=== PATIENT | male | born 1955 | race American Indian/Alaskan Native ===

== ENCOUNTER 2021-03-19 21:53 | Emergency (ER) | payer SELFPAY ==
[2021-03-19] MEDS ORDERED: SODIUM CHLORIDE 0.9% 1000 ML 1,000 ML IV ONE (23:05)
[2021-03-19] MEDS ORDERED: LORazepam 2 MG/ML VIAL IV PRN ×2 (23:07)
[2021-03-19] MEDS ORDERED: PANTOPRAZOLE 40 MG INJ IV ONE (23:07)
[2021-03-19] MEDS ORDERED: LACTATED RINGERS 1,000 ML IV ONE (23:07)
[2021-03-19] MEDS ORDERED: ONDANSETRON 4 MG/2 ML INJ IV ONE (23:10)
--- NOTE | 2021-03-19 23:10 | Emergency Department Report ---
ED General Adult HPI - General Chief complaint: Weakness Stated complaint: N/V PUI?: No Time Seen by Provider: 03/19/21 22:54 Source: patient, EMS ( EMS documentation not available at time of chart dictation ), RN notes reviewed Mode of arrival: Stretcher Limitations: Physical Limitation - History of Present Illness Initial comments: The patient is a 65-year-old gentleman. He is not known to myself previously. History obtained from EMS and from patient. As per verbal report from EMS, the patient was previously homeless, has not seen a doctor, in quite some time, and has an unknown cohort of medical problems. EMS reports that they were called for a complaint of weakness, and nausea, vomiting, and difficulty walking. EMS reports stable vital signs in the field. The patient himself complains of generalized weakness, muscle cramping, nontraumatic lower back pain which does not radiate anywhere, and generalized weakness in his legs. He feels like his generalized weakness in his legs has been present for "a long time." He is not quite sure what time it got worse. He knows that he lives with his sister, and states that he has assistance putting on his shoes, and clothing He denies headache, neck pain, chest pain. He has abdominal cramping. To me he denies vomiting and diarrhea. He denies saddle anesthesia. He denies bladder or bowel retention/incontinence. He occasionally consumes alcohol. He denies recreational drug use. He is not homicidal or suicidal. His generalized weakness is constant. It does not radiate anywhere. He does not have exacerbating relieving factors. -: Gradual, week(s) Location: back, left, right, upper extremity, lower extremity Quality: other Consistency: other Improves with: other Worsens with: other Associated Symptoms: weakness - Related Data Allergies Allergy/AdvReac Type Severity Reaction Status Date / Time No Known Allergies Allergy Verified 03/19/21 23:04 ED Review of Systems ROS: Stated complaint: N/V Other details as noted in HPI Constitutional: weakness, other (Denies loss of taste and smell). denies: fever Eyes: denies: eye discharge Respiratory: denies: cough Cardiovascular: denies: chest pain Gastrointestinal: other (Abdominal cramp) Musculoskeletal: back pain, arthralgia, myalgia Neurological: weakness Psychiatric: denies: homicidal thoughts, suicidal thoughts ED Past Medical Hx - Social History Smoking Status: Never Smoker Substance Use Type: Alcohol ED Physical Exam - General Limitations: Physical Limitation General appearance: alert, anxious, obese - Head Head exam: Present: atraumatic, other (There is a right frontal circumscribed lesion noted) - Eye Eye exam: Present: normal appearance, EOMI. Absent: nystagmus - ENT ENT exam: Present: mucous membranes dry, normal external ear exam - Neck Neck exam: Present: normal inspection, full ROM. Absent: tenderness, meningismus - Respiratory Respiratory exam: Present: normal lung sounds bilaterally, other (There is an anterior chest wall circular lesion noted). Absent: respiratory distress, wheezes, rales, rhonchi, stridor, decreased breath sounds - Cardiovascular Cardiovascular Exam: Present: regular rate, normal rhythm, normal heart sounds. Absent: bradycardia, tachycardia, irregular rhythm, systolic murmur, diastolic murmur, rubs, gallop - GI/Abdominal GI/Abdominal exam: Present: soft, distended. Absent: guarding, rebound, rigid, pulsatile mass - Rectal Rectal exam: Present: normal inspection, normal rectal tone, heme (+) stool, black stool, other (Chaperoned by Loulou Lockett). Absent: bloody stool, fecal impaction - Extremities Exam Extremities exam: Present: normal inspection (The patient is able to wiggle both feet, and move both legs laterally. He also briskly withdraws both legs to painful stimuli/pins), full ROM (Full range of motion in the bilateral upper extremities.), other (2+ pulses noted in the bilateral upper and lower extremities. There is no palpable cord. negative Homans sign. Muscular compartments are soft. The pelvis is stable.). Absent: pedal edema, calf tenderness - Back Exam Back exam: Present: normal inspection, paraspinal tenderness. Absent: tenderness, CVA tenderness (R), CVA tenderness (L) - Neurological Exam Neurological exam: Present: alert, oriented X3, motor sensory deficit (Patient has 4 out of 5 strength in the bilateral lower extremities. He has 5 out of 5 strength in the upper extremities.), other (There is no facial droop. The tongue is midline. Extraocular movements are intact bilaterally. Sensation is intact to light touch and pinch in the bilateral upper and lower extremities. Proprioception is intact in the lower extremities.) - Psychiatric Psychiatric exam: Present: anxious - Skin Skin exam: Present: warm, dry, intact, normal color. Absent: rash ED Course Vital Signs 03/19/21 03/19/21 03/19/21 23:00 23:16 23:30 Temperature 98.3 F Pulse Rate 91 H 95 H 81 Respiratory 22 13 13 Rate Blood Pressure 138/93 138/93 138/93 Blood Pressure 138/93 [Left] O2 Sat by Pulse 100 98 100 Oximetry 03/19/21 03/20/21 03/20/21 23:46 00:00 00:16 Temperature Pulse Rate 84 84 91 H Respiratory 16 19 20 Rate Blood Pressure 138/90 138/90 139/87 Blood Pressure [Left] O2 Sat by Pulse 98 99 92 Oximetry 03/20/21 03/20/21 03/20/21 00:35 00:36 02:10 Temperature Pulse Rate 90 94 H 93 H Respiratory 16 18 16 Rate Blood Pressure 139/87 Blood Pressure 129/77 137/81 [Left] O2 Sat by Pulse 97 93 Oximetry 03/20/21 02:39 Temperature Pulse Rate 101 H Respiratory 25 H Rate Blood Pressure 129/77 Blood Pressure [Left] O2 Sat by Pulse Oximetry - Reevaluation(s) Reevaluation #1: 03/20/21 00:07 Differential diagnosis, including but not limited to: Myopathy, deconditioning, psoas abscess, electrolyte derangement, thyroid derangement, alcohol dependence AAA DJD, upper GI bleed Assessment and plan: 65-year-old gentleman with a complaint of generalized weakness, back pain, history of nausea and vomiting. The patient is a poor historian. He is experiencing myoclonic jerks. He has dark stool that is guaiac positive. He has some tongue fasciculations. Suspect there may be a component of alcohol dependence/withdrawal. Place patient on court recording monitor. Obtain CT scan of the brain, abdomen pelvis. Obtain appropriate laboratory studies. Initiate alcohol withdrawal protocol. Start IV fluids and Protonix. Reassess after initial data points. The patient has intact sensation to pinch, light touch and proprioception, with good rectal tone, without saddle anesthesia. He also does not have bladder or bowel retention or incontinence. He also reports that his leg weakness has been present for a long time. 03/20/21 00:59 Patient is awake, but more confused. Thought processes not quite as lucid at this time. He is also found to be mildly hyponatremic, with lactic acidosis. I suspect a component of alcohol withdrawal. ciwa score 15 Nursing team to follow protocol. CT scan brain, abdomen pelvis ordered. Patie nt will be admitted once initial diagnostics have resulted. Suspect that lactic acidosis is a type II lactic acidosis, likely secondary to dehydration, and alcohol dependence and withdrawal. Do not suspect invasive bacterial infection at this time. 03/20/21 01:01 03/20/21 02:23 Patient has become progressively more agitated. He is pulling off leads, and his IV. His alcohol withdrawal score is elevating. He does not respond to command or redirection. Medicated as per protocol. 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 MRI of the brain with contrast would be suggested for further evaluation and to differentiate between primary neoplasm versus metastasis. No acute intracranial hemorrhage is identified. Decadron ordered. Have requested neurosurgical consultation. Am awaiting callback at this time. 03/20/21 04:13 Reevaluation #2: 03/20/21 03:55 Our neurosurgeon recommended transfer. Please reference my consultative note. Reevaluation #3: 03/20/21 04:12 Have discussed patient's history, physical, imaging, pertinent laboratory studies physical exam findings with neurology critical care, Dr. Crocker, and neurosurgeon, Dr. Granda at [facility] The patient is accepted to [facility] as a transfer. - Consultations Consultation #1: 03/20/21 02:33 Contacted our neurosurgeon on-call, Dr. Meier. Have discussed the patient's history, physical, laboratory studies, imaging studies, and overall clinical impression. He advises at this facility is not capable of performing open craniotomy interventions, and he recommends transfer to tertiary care center that can perform higher level of care. We have now reached out to the [facility] transfer center to arrange transfer for definitive management. ED Medical Decision Making - Lab Data Result diagrams: 03/19/21 23:11 03/19/21 23:11 Vital Signs 03/19/21 23:00 Temperature 98.3 F Pulse Rate 91 H Respiratory 22 Rate Blood Pressure 138/93 Blood Pressure 138/93 [Left] O2 Sat by Pulse 99 Oximetry Lab Results 03/19/21 03/19/21 03/19/21 Range/Units 23:11 23:11 23:11 WBC 10.4 (4.5-11.0) K/mm3 RBC 4.33 (3.65-5.03) M/mm3 Hgb 15.3 H (11.8-15.2) gm/dl Hct 44.6 (35.5-45.6) % MCV 103 H (84-94) fl MCH 35 H (28-32) pg MCHC 34 (32-34) % RDW 17.8 H (13.2-15.2) % Plt Count 292 (140-440) K/mm3 Lymph % (Auto) 13.8 (13.4-35.0) % [place] % (Auto) 14.4 H (0.0-7.3) % Eos % (Auto) 0.1 (0.0-4.3) % Baso % (Auto) 0.4 (0.0-1.8) % Lymph # (Auto) 1.4 (1.2-5.4) K/mm3 [place] # (Auto) 1.5 H (0.0-0.8) K/mm3 Eos # (Auto) 0.0 (0.0-0.4) K/mm3 Baso # (Auto) 0.0 (0.0-0.1) K/mm3 Seg Neutrophils % 71.3 H (40.0-70.0) % Seg Neutrophils # 7.4 (1.8-7.7) K/mm3 PT 13.6 (12.2-14.9) Sec. INR 0.98 (0.87-1.13) Troponin T (0.00-0.029) ng/mL Albumin/Globulin Ratio 0.8 % 03/19/21 Range/Units 23:11 WBC (4.5-11.0) K/mm3 RBC (3.65-5.03) M/mm3 Hgb (11.8-15.2) gm/dl Hct (35.5-45.6) % MCV (84-94) fl MCH (28-32) pg MCHC (32-34) % RDW (13.2-15.2) % Plt Count (140-440) K/mm3 Lymph % (Auto) (13.4-35.0) % [place] % (Auto) (0.0-7.3) % Eos % (Auto) (0.0-4.3) % Baso % (Auto) (0.0-1.8) % Lymph # (Auto) (1.2-5.4) K/mm3 [place] # (Auto) (0.0-0.8) K/mm3 Eos # (Auto) (0.0-0.4) K/mm3 Baso # (Auto) (0.0-0.1) K/mm3 Seg Neutrophils % (40.0-70.0) % Seg Neutrophils # (1.8-7.7) K/mm3 PT (12.2-14.9) Sec. INR (0.87-1.13) Troponin T < 0.010 (0.00-0.029) ng/mL Albumin/Globulin Ratio % Lab Results 03/19/21 03/19/21 03/19/21 Range/Units 23:11 23:11 23:11 WBC 10.4 (4.5-11.0) K/mm3 RBC 4.33 (3.65-5.03) M/mm3 Hgb 15.3 H (11.8-15.2) gm/dl Hct 44.6 (35.5-45.6) % MCV 103 H (84-94) fl MCH 35 H (28-32) pg MCHC 34 (32-34) % RDW 17.8 H (13.2-15.2) % Plt Count 292 (140-440) K/mm3 Lymph % (Auto) 13.8 (13.4-35.0) % [place] % (Auto) 14.4 H (0.0-7.3) % Eos % (Auto) 0.1 (0.0-4.3) % Baso % (Auto) 0.4 (0.0-1.8) % Lymph # (Auto) 1.4 (1.2-5.4) K/mm3 [place] # (Auto) 1.5 H (0.0-0.8) K/mm3 Eos # (Auto) 0.0 (0.0-0.4) K/mm3 Baso # (Auto) 0.0 (0.0-0.1) K/mm3 Seg Neutrophils % 71.3 H (40.0-70.0) % Seg Neutrophils # 7.4 (1.8-7.7) K/mm3 PT 13.6 (12.2-14.9) Sec. INR 0.98 (0.87-1.13) Sodium 130 L (137-145) mmol/L Potassium 3.8 (3.6-5.0) mmol/L Chloride 91.1 L (98-107) mmol/L Carbon Dioxide 24 (22-30) mmol/L Anion Gap 19 mmol/L BUN 10 (9-20) mg/dL Creatinine 0.6 L (0.8-1.3) mg/dL Estimated GFR > 60 ml/min BUN/Creatinine Ratio 17 % Glucose 107 H (75-100) mg/dL Lactic Acid (0.7-2.0) mmol/L Calcium 10.0 (8.4-10.2) mg/dL Phosphorus (2.5-4.5) mg/dL Magnesium (1.7-2.3) mg/dL Total Bilirubin 1.10 (0.1-1.2) mg/dL AST 42 H (5-40) units/L ALT 14 (7-56) units/L Alkaline Phosphatase 198 H (35-129) units/L Ammonia (25-60) umol/L Total Creatine Kinase (55-170) units/L Troponin T (0.00-0.029) ng/mL Total Protein 8.3 H (6.3-8.2) g/dL Albumin 3.8 L (3.9-5) g/dL Albumin/Globulin Ratio 0.8 % TSH (0.270-4.200) mlU/mL Salicylates (2.8-20.0) mg/dL Acetaminophen (10.0-30.0) ug/mL Plasma/Serum Alcohol (0-0.07) % 03/19/21 03/19/21 03/19/21 Range/Units 23:11 23:11 23:11 WBC (4.5-11.0) K/mm3 RBC (3.65-5.03) M/mm3 Hgb (11.8-15.2) gm/dl Hct (35.5-45.6) % MCV (84-94) fl MCH (28-32) pg MCHC (32-34) % RDW (13.2-15.2) % Plt Count (140-440) K/mm3 Lymph % (Auto) (13.4-35.0) % [place] % (Auto) (0.0-7.3) % Eos % (Auto) (0.0-4.3) % Baso % (Auto) (0.0-1.8) % Lymph # (Auto) (1.2-5.4) K/mm3 [place] # (Auto) (0.0-0.8) K/mm3 Eos # (Auto) (0.0-0.4) K/mm3 Baso # (Auto) (0.0-0.1) K/mm3 Seg Neutrophils % (40.0-70.0) % Seg Neutrophils # (1.8-7.7) K/mm3 PT (12.2-14.9) Sec. INR (0.87-1.13) Sodium (137-145) mmol/L Potassium (3.6-5.0) mmol/L Chloride (98-107) mmol/L Carbon Dioxide (22-30) mmol/L Anion Gap mmol/L BUN (9-20) mg/dL Creatinine (0.8-1.3) mg/dL Estimated GFR ml/min BUN/Creatinine Ratio % Glucose (75-100) mg/dL Lactic Acid 3.50 H* (0.7-2.0) mmol/L Calcium (8.4-10.2) mg/dL Phosphorus 2.70 (2.5-4.5) mg/dL Magnesium 1.80 (1.7-2.3) mg/dL Total Bilirubin (0.1-1.2) mg/dL AST (5-40) units/L ALT (7-56) units/L Alkaline Phosphatase (35-129) units/L Ammonia (25-60) umol/L Total Creatine Kinase 120 (55-170) units/L Troponin T < 0.010 (0.00-0.029) ng/mL Total Protein (6.3-8.2) g/dL Albumin (3.9-5) g/dL Albumin/Globulin Ratio % TSH 1.990 (0.270-4.200) mlU/mL Salicylates (2.8-20.0) mg/dL Acetaminophen (10.0-30.0) ug/mL Plasma/Serum Alcohol (0-0.07) % 03/19/21 03/19/21 03/19/21 Range/Units 23:11 23:11 23:11 WBC (4.5-11.0) K/mm3 RBC (3.65-5.03) M/mm3 Hgb (11.8-15.2) gm/dl Hct (35.5-45.6) % MCV (84-94) fl MCH (28-32) pg MCHC (32-34) % RDW (13.2-15.2) % Plt Count (140-440) K/mm3 Lymph % (Auto) (13.4-35.0) % [place] % (Auto) (0.0-7.3) % Eos % (Auto) (0.0-4.3) % Baso % (Auto) (0.0-1.8) % Lymph # (Auto) (1.2-5.4) K/mm3 [place] # (Auto) (0.0-0.8) K/mm3 Eos # (Auto) (0.0-0.4) K/mm3 Baso # (Auto) (0.0-0.1) K/mm3 Seg Neutrophils % (40.0-70.0) % Seg Neutrophils # (1.8-7.7) K/mm3 PT (12.2-14.9) Sec. INR (0.87-1.13) Sodium (137-145) mmol/L Potassium (3.6-5.0) mmol/L Chloride (98-107) mmol/L Carbon Dioxide (22-30) mmol/L Anion Gap mmol/L BUN (9-20) mg/dL Creatinine (0.8-1.3) mg/dL Estimated GFR ml/min BUN/Creatinine Ratio % Glucose (75-100) mg/dL Lactic Acid (0.7-2.0) mmol/L Calcium (8.4-10.2) mg/dL Phosphorus (2.5-4.5) mg/dL Magnesium (1.7-2.3) mg/dL Total Bilirubin (0.1-1.2) mg/dL AST (5-40) units/L ALT (7-56) units/L Alkaline Phosphatase (35-129) units/L Ammonia 20.0 L (25-60) umol/L Total Creatine Kinase (55-170) units/L Troponin T (0.00-0.029) ng/mL Total Protein (6.3-8.2) g/dL Albumin (3.9-5) g/dL Albumin/Globulin Ratio % TSH (0.270-4.200) mlU/mL Salicylates 0.4 L (2.8-20.0) mg/dL Acetaminophen 5.0 L (10.0-30.0) ug/mL Plasma/Serum Alcohol (0-0.07) % 03/19/21 Range/Units 23:11 WBC (4.5-11.0) K/mm3 RBC (3.65-5.03) M/mm3 Hgb (11.8-15.2) gm/dl Hct (35.5-45.6) % MCV (84-94) fl MCH (28-32) pg MCHC (32-34) % RDW (13.2-15.2) % Plt Count (140-440) K/mm3 Lymph % (Auto) (13.4-35.0) % [place] % (Auto) (0.0-7.3) % Eos % (Auto) (0.0-4.3) % Baso % (Auto) (0.0-1.8) % Lymph # (Auto) (1.2-5.4) K/mm3 [place] # (Auto) (0.0-0.8) K/mm3 Eos # (Auto) (0.0-0.4) K/mm3 Baso # (Auto) (0.0-0.1) K/mm3 Seg Neutrophils % (40.0-70.0) % Seg Neutrophils # (1.8-7.7) K/mm3 PT (12.2-14.9) Sec. INR (0.87-1.13) Sodium (137-145) mmol/L Potassium (3.6-5.0) mmol/L Chloride (98-107) mmol/L Carbon Dioxide (22-30) mmol/L Anion Gap mmol/L BUN (9-20) mg/dL Creatinine (0.8-1.3) mg/dL Estimated GFR ml/min BUN/Creatinine Ratio % Glucose (75-100) mg/dL Lactic Acid (0.7-2.0) mmol/L Calcium (8.4-10.2) mg/dL Phosphorus (2.5-4.5) mg/dL Magnesium (1.7-2.3) mg/dL Total Bilirubin (0.1-1.2) mg/dL AST (5-40) units/L ALT (7-56) units/L Alkaline Phosphatase (35-129) units/L Ammonia (25-60) umol/L Total Creatine Kinase (55-170) units/L Troponin T (0.00-0.029) ng/mL Total Protein (6.3-8.2) g/dL Albumin (3.9-5) g/dL Albumin/Globulin Ratio % TSH (0.270-4.200) mlU/mL Salicylates (2.8-20.0) mg/dL Acetaminophen (10.0-30.0) ug/mL Plasma/Serum Alcohol 0.01 (0-0.07) % Vital Signs 03/19/21 03/20/21 23:00 00:35 Temperature 98.3 F Pulse Rate 91 H 90 Respiratory 22 16 Rate Blood Pressure 138/93 Blood Pressure 138/93 129/77 [Left] O2 Sat by Pulse 99 97 Oximetry - EKG Data -: EKG Interpreted by Mt - EKG Data 03/20/21 00:01 Sinus rhythm, 90 bpm. There is a left axis deviation. There is a left anterior fascicular block. There is a right bundle block. There is left ventricular hypertrophy. This is an abnormal EKG. This is not a STEMI. There is no prior for comparison. - Radiology Data Radiology results: report reviewed, image reviewed [facility] [address] [place] [address] XRay Report Signed Patient: FREDDY GARCIA MR#: [id number] : 1955 Acct:[id number] Age/Sex: 65 / M ADM Date: 03/19/21 Loc: ED Attending Dr: Ordering Physician: CLARIBEL MCCULLOUGH MD Date of Service: 03/19/21 Procedure(s): XR chest 1V ap Accession Number(s): [id number] cc: CLARIBEL MCCULLOUGH MD Fluoro Time In Minutes: CHEST 1 VIEW INDICATION / CLINICAL INFORMATION: Weakness. FINDINGS: SUPPORT DEVICES: None. HEART / MEDIASTINUM: No significant abnormality. LUNGS / PLEURA: Prominent calcific density measuring about 6 cm in diameter projects along the right lateral chest wall. The remaining lungs are grossly clear. No large pleural effusion. Signer Name: Suhas Camargo MD Signed: 03/19/2021 11:37 PM Workstation Name: [id number] Transcribed By: BC Dictated By: Suhas Camargo MD Electronically Authenticated By: Suhas Camargo MD Signed Date/Time: 03/19/212336 DD/ 35 [facility] [address] [place] [address] Cat Scan Report Signed Patient: FREDDY GARCIA MR#: [id number] : 1955 Acct:[id number] Age/Sex: 65 / M ADM Date: 03/19/21 Loc: ED Attending Dr: Ordering Physician: CLARIBEL MCCULLOUGH MD Date of Service: 03/19/21 Procedure(s): CT head/brain wo con Accession Number(s): [id number] cc: CLARIBEL MCCULLOUGH MD CT head without contrast INDICATION : Headache TECHNIQUE: Axial imaging performed from the skull apex through the skull base without the use of contrast. All CT examinations performed at this facility utilize dose modulation, iterative reconstruction or weight-based dosing, when appropriate, to reduce radiation dose to as low as reasonably achievable. COMPARISON: None FINDINGS: There is a large, moderately appearing mass arising near the right frontal convexity of the skull measuring 4.6 x 3.5 cm. There is some intermixed calcification within the mass. This mass causes mass effect on the epidural space and the adjacent right frontal lobe. No acute intracranial hemorrhage is identified. The orbits are unremarkable. The paranasal sinuses are grossly clear. 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 MRI of the brain with contrast would be suggested for further evaluation and to differentiate between primary neoplasm versus metastasis. No acute intracranial hemorrhage is identified. Signer Name: Suhas Camargo MD Signed: 03/20/2021 2:13 AM Workstation Name: [id number] Transcribed By: BC Dictated By: Suhas Camargo MD Electronically Authenticated By: Suhas Camargo MD Signed Date/Time: 03/20/21212 DD/ 7 [facility] [address] [place] [address] Cat Scan Report Signed Patient: FREDDY GARCIA MR#: [id number] : 1955 Acct:[id number] Age/Sex: 65 / M ADM Date: 03/19/21 Loc: ED Attending Dr: Ordering Physician: CLARIBEL MCCULLOUGH MD Date of Service: 03/19/21 Procedure(s): CT abdomen pelvis w con Accession Number(s): [id number] cc: CLARIBEL MCCULLOUGH MD CT abdomen pelvis w con INDICATION / CLINICAL INFORMATION: Pt complains of we akness, N/V and lower back pain. TECHNIQUE: Routine CT abdomen pelvis with contrast All CT scans at this location are performed using CT dose reduction for ALARA by means of automated exposure control. This exam is severely limited secondary to respiratory motion artifact and patient arm position causing streak artifact. COMPARISON: None available. FINDINGS: Abdomen and pelvis: Limited exam as outlined above in techniques section. There are multiple nonspecific hypodensities scattered throughout the liver. The gallbladder wall appears thickened. There is mild intra and extra hepatic b iliary dilatation. The pancreas is borderline atrophic. The pancreatic head is poorly visualized from streak artifact. No hydronephrosis. The right kidney is grossly unremarkable. The adrenal glands are unremarkable. The left kidney contains a hypodensity within the upper pole that may represent a cyst No evidence of high-grade bowel obstruction. Urinary bladder is unremarkable. Abnormal thickening of the rectal wall, nonspecific. There is also abnormal thickening involving the distal thoracic esophagus. Multiple pathologic appearing retroperitoneal nodes identified along the periaortic region. Large right inguinal hernia, fat-containing Review of the bone windows demonstrates innumerable large lytic lesions involving the thoracic spine lumbar spine and pelvis. One of the largest lesions is located within the right sacrum and measures 4 cm in diameter and is causing direct impingement of the exiting nerves from the right S2 and S3 neural foramina. Similar-appearing lytic lesions are identified involving the T12 vertebral body causing severe impingement of the right exiting nerve root at this level. This lesion measures 4.3 cm in diameter. There is a large lytic abnormality involving the lateral aspect of L1 which measures 5 cm in diameter IMPRESSION: 1. Limited exam, as outlined above. 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 Many of these lesions are causing neural impingement. MRI of the thoracic and lumbar spine with contrast is suggested for further evaluation. 2. Severe abnormal mucosal thickening of the distal thoracic esophagus which could represent esophagitis versus underlying mass. Upper endoscopy is suggested 3. Multiple hypodense lesions throughout the liver are poorly evaluated on this exam given the technique but metastasis cannot be excluded 4. Mild abnormal thickening of the rectum distally, as above Signer Name: Suhas Camargo MD Signed: 03/20/2021 2:34 AM Workstation Name: [id number] Transcribed By: BC Dictated By: Suhas Camargo MD Electronically Authenticated By: Suhas Camargo MD Signed Date/Time: 03/20/21233 DD/ 6 Critical Care Time: Yes Critical care time in (mins) excluding proc time.: 74 Critical care attestation.: If time is entered above; I have spent that time in minutes in the direct care of this critically ill patient, excluding procedure time. ED Disposition Clinical Impression: Acute encephalopathy, Dehydration, Hyponatremia, Alcohol withdrawal, Lactic acidosis, Guaiac positive stools, Debility, Mass of skull, Multiple lesions on computed tomography of brain and spine Disposition: DC/TX-02 SHRT-TRM GEN HOSP IP Is pt being admited?: No Does the pt Need Aspirin: No Condition: Serious Referrals: PRIMARY CARE, [Primary Care Provider] - 3-5 Days
[2021-03-19] MEDS: LORazepam 2 MG/ML VIAL IV PRN (23:40)
--- NOTE | 2021-03-19 23:41 | XRay Report ---
CHEST 1 VIEW INDICATION / CLINICAL INFORMATION: Weakness. FINDINGS: SUPPORT DEVICES: None. HEART / MEDIASTINUM: No significant abnormality. LUNGS / PLEURA: Prominent calcific density measuring about 6 cm in diameter projects along the right lateral chest wall. The remaining lungs are grossly clear. No large pleural effusion. Signer Name: Suhas Camargo MD Signed: 03/19/2021 11:37 PM Workstation Name: [id number]
[2021-03-19 23:45] LABS: INR 0.98 (0.87-1.13)
[2021-03-19 23:53] LABS: Basophils % (Auto) 0.4 % (0.0-1.8); Eosinophils % (Auto) 0.1 % (0.0-4.3); Hematocrit 44.6 % (35.5-45.6); Hemoglobin 15.3 gm/dl (11.8-15.2); Lymphocytes # (Auto) 1.4 K/mm3 (1.2-5.4); Lymphocytes % (Auto) 13.8 % (13.4-35.0); Mean Corpuscular HGB Conc 34 % (32-34); Mean Corpuscular Volume 103 fl (84-94); Monocytes # (Auto) 1.5 K/mm3 (0.0-0.8); Monocytes % (Auto) 14.4 % (0.0-7.3); Platelet Count 292 K/mm3 (140-440); Red Blood Count 4.33 M/mm3 (3.65-5.03); Red Cell Distribution Width 17.8 % (13.2-15.2)
[2021-03-20] LABS: Alanine Aminotransferase 14 units/L (7-56); Albumin 3.8 g/dL (3.9-5); Blood Urea Nitrogen 10 mg/dL (9-20); Hemolysis Index 15
[2021-03-20 00:28] LABS: BUN/Creatinine Ratio 17
[2021-03-20] MEDS: LORazepam 2 MG/ML VIAL IV PRN ×2 (00:41→02:23)
[2021-03-20] MEDS ORDERED: HALOPERIDOL LACTATE 5 MG/1 ML INJ ONE (01:28)
[2021-03-20] MEDS ORDERED: HALOPERIDOL LACTATE 5 MG/1 ML INJ IM ONE ×2 (01:35→01:47)
[2021-03-20] MEDS ORDERED: THIAMINE 100 MG, FOLIC ACID 1 MG, MULTIPLE VITAMIN INJ, ADULT 10 ML in SODIUM CHLORIDE ... IV ONE (01:39)
--- NOTE | 2021-03-20 02:18 | Cat Scan Report ---
CT head without contrast INDICATION : Headache TECHNIQUE: Axial imaging performed from the skull apex through the skull base without the use of con trast. All CT examinations performed at this facility utilize dose modulation, iterative reconstruct ion or weight-based dosing, when appropriate, to reduce radiation dose to as low as reasonably achiev able. COMPARISON: None FINDINGS: There is a large, moderately appearing mass arising near the right frontal convexity of the skull measuring 4.6 x 3.5 cm. There is some intermixed calcification within the mass. This mass caus es mass effect on the epidural space and the adjacent right frontal lobe. No acute intracranial hemor rhage is identified. The orbits are unremarkable. The paranasal sinuses are grossly clear. 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 MRI of the brain with contrast would be suggested for further evaluat ion and to differentiate between primary neoplasm versus metastasis. No acute intracranial hemorrhage is identified. Signer Name: Suhas Camargo MD Signed: 03/20/2021 2:13 AM Workstation Name: [id number]
[2021-03-20] MEDS ORDERED: dexAMETHasone 4 MG/ML VIAL IV ONE (02:22)
--- NOTE | 2021-03-20 02:38 | Cat Scan Report ---
CT abdomen pelvis w con INDICATION / CLINICAL INFORMATION: Pt complains of weakness, N/V and lower back pain. TECHNIQUE: Routine CT abdomen pelvis with contrast All CT scans at this location are performed using CT dose red uction for ALARA by means of automated exposure control. This exam is severely limited secondary to r espiratory motion artifact and patient arm position causing streak artifact. COMPARISON: None available. FINDINGS: Abdomen and pelvis: Limited exam as outlined above in techniques section. There are multiple nonspeci fic hypodensities scattered throughout the liver. The gallbladder wall appears thickened. There is mi ld intra and extra hepatic biliary dilatation. The pancreas is borderline atrophic. The pancreatic he ad is poorly visualized from streak artifact. No hydronephrosis. The right kidney is grossly unremark able. The adrenal glands are unremarkable. The left kidney contains a hypodensity within the upper po le that may represent a cyst No evidence of high-grade bowel obstruction. Urinary bladder is unremarkable. Abnormal thickening of the rectal wall, nonspecific. There is also abnormal thickening involving the distal thoracic esophagus. Multiple pathologic appearing retroperitoneal nodes identified along the periaortic region. Large rig ht inguinal hernia, fat-containing Review of the bone windows demonstrates innumerable large lytic lesions involving the thoracic spine lumbar spine and pelvis. One of the largest lesions is located within the right sacrum and measures 4 cm in diameter and is causing direct impingement of the exiting nerves from the right S2 and S3 neur al foramina. Similar-appearing lytic lesions are identified involving the T12 vertebral body causing severe impingement of the right exiting nerve root at this level. This lesion measures 4.3 cm in diam eter. There is a large lytic abnormality involving the lateral aspect of L1 which measures 5 cm in di ameter IMPRESSION: 1. Limited exam, as outlined above. 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 Many of these lesions are causing neural impingement. MRI of the t horacic and lumbar spine with contrast is suggested for further evaluation. 2. Severe abnormal mucosal thickening of the distal thoracic esophagus which could represent esophagi tis versus underlying mass. Upper endoscopy is suggested 3. Multiple hypodense lesions throughout the liver are poorly evaluated on this exam given the techni que but metastasis cannot be excluded 4. Mild abnormal thickening of the rectum distally, as above Signer Name: Suhas Camargo MD Signed: 03/20/2021 2:34 AM Workstation Name: [id number]
[2021-03-20] MEDS ORDERED: levETIRAcetam 1000 MG/NS 0.75% 1,000 MG/100 ML BAG IV ONE (04:13)
[2021-03-20] MEDS ORDERED: ONDANSETRON 4 MG/2 ML INJ IV PRN (04:14)
[2021-03-20 06:44] LABS: Bilirubin,Urine NEG (Negative); Blood,Urine NEG (Negative); Color,Urine Yellow (Yellow); Hyaline Casts,Urine 1 /LPF; Mucus,Urine FEW /HPF; Protein,Urine <15 mg/dL mg/dL (Negative); Urobilinogen,Urine < 2.0 mg/dL (<2.0); WBC,Urine < 1.0 /HPF (0.0-6.0)
[2021-03-20 07:06] VITALS: BP 94/60
--- NOTE | 2021-03-20 09:58 | Electrocardiograph Report ---
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
== END 2021-03-20 07:30 | disposition short-term general hospital (02) ==
LOC: ED 21:53
DX: G93.40 Encephalopathy, unspecified (principal); E86.0 Dehydration; E87.1 Hypo-osmolality and hyponatremia; E87.2 Acidosis; F10.129 Alcohol abuse with intoxication, unspecified; R19.5 Other fecal abnormalities; R90.89 Other abnormal findings on diagnostic imaging of central nervous system; Z79.899 Other long term (current) drug therapy; Y90.9 Presence of alcohol in blood, level not specified
CPT/HCPCS: 36415; 70450; 71045; 74177; 80053; 81001; 82140; 82550; 83735; 84100; 84443; 84484; 85025; 85610; 86850; 86900; 86901; 93005; 96361; 96365; 96366; 96372; 96375; 99291; C9113; J1100; J1630; J1953; J2060; J2405; J3411; J7030; J7120; Q9967; 80320; G0480